=== PATIENT | male | born 1950 | race African-American/Black ===

== ENCOUNTER 2017-09-08 05:26 | Emergency (ER) | payer OTHER ==
[2017-09-08] MEDS ORDERED: Ketorolac INJ* 30 MG/ML 1 ML VIAL IV PUSH ONE (07:23)
[2017-09-08] MEDS ORDERED: Dexamethasone IV* 4 MG/ML 5 ML VIAL (20 MG) IVPB ONE (07:23)
[2017-09-08 07:27] LABS: Hematocrit 42 % (42-52); Mean Corpuscular HGB Conc 34 g/dl (31-36); Mean Corpuscular Hemoglobin 32 pg (27-31); Mean Corpuscular Volume 96 fL (80-94); Mean Platelet Volume 8 um3 (7.4-10.4); Red Blood Count 4.34 10^6/ul (4.0-5.4); Red Cell Distribution Width 16 % (10.5-15); White Blood Count 6.6 10^3/ul (3.5-10.8)
[2017-09-08 07:28] LABS: Add Diff/Slide Review? Slide Review Added; Comments Flag Yes
[2017-09-08] MEDS ORDERED: Orphenadrine Citrate IV* 30 MG/ML 2 ML VIAL IV ONE (07:28)
[2017-09-08 07:33] LABS: ALT 86 U/L (7-52); Albumin 4.6 g/dL (3.2-5.2); Alkaline Phosphatase 108 U/L (34-104); BUN/Creatinine Ratio 12.4 (8-20); Blood Urea Nitrogen 11 mg/dL (6-24); CO2 Carbon Dioxide 21 mmol/L (22-32); Calcium 9.1 mg/dL (8.6-10.3); Chloride 103 mmol/L (101-111); EGFR African American 110.3 (>60); EGFR Non-African American 85.8 (>60); Globulin 3.3 g/dL (2-4); Glucose 91 mg/dL (70-100); Sodium 138 mmol/L (133-145); Total Protein 7.9 g/dL (6.4-8.9)
--- NOTE | 2017-09-08 07:48 | RAD ---
HISTORY: Lower back pain COMPARISONS: None VIEWS: 3 , Frontal, lateral, and coned-down lateral sacral views of the lumbar spine FINDINGS: ALIGNMENT: There is straightening of the normal lumbar lordosis. VERTEBRAL BODIES: The vertebral body heights are normal. The interpedicular distances are normal. There is mild anterolateral marginal osteophyte formation, most pronounced at L3-L4 JOINTS: The facet joints are normal. INTERVERTEBRAL DISCS: There is diffuse loss of intervertebral disc height. SOFT TISSUE: Unremarkable. OTHER: The pelvis is unremarkable. The lung bases are clear. IMPRESSION: STRAIGHTENING OF THE LUMBAR LORDOSIS. MILD DEGENERATIVE DISC DISEASE.
--- NOTE | 2017-09-08 07:48 | RAD ---
HISTORY: Upper back pain COMPARISONS: None relevant VIEWS: 2, Frontal and lateral views of the thoracic spine. FINDINGS: ALIGNMENT: The alignment is normal. VERTEBRAL BODIES: The vertebral body heights are normal. The interpedicular distances are normal. JOINTS: Unremarkable. INTERVERTEBRAL DISCS: There is mild diffuse loss of intervertebral disc height. SOFT TISSUE: Unremarkable OTHER: The visualized lungs are clear. IMPRESSION: MILD DEGENERATIVE CHANGES
[2017-09-08 07:59] LABS: Alcohol 296 mg/dL (<10)
[2017-09-08 08:26] VITALS: BP 152/92
[2017-09-08 08:28] LABS: Anion Gap 14 mmol/L (2-11)
--- NOTE | 2017-09-09 18:55 | ED ---
Suhas Vargas Angela, scribed for Kyle Hickey MD on 09/08/17 at 0724 . Progress - Progress Note Progress Note: This pt was signed out by Dr. Church, pending disposition, awaiting thoracic and lumbar spine XRs. Pt is a 67 y/o male presenting to [facility] c/o back pain x2 days. Pt notes his pain is non-radiating. 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 Pt denies urinary or bowel incontinence, numbness/weakness/tingling in LE. Physical Exam: VITAL SIGNS: Reviewed. GENERAL: Patient is a well-developed and nourished male who is lying comfortable in the stretcher. Patient is not in acute distress. HEAD AND FACE: No signs of trauma. No ecchymosis, hematomas or skull depressions. No sinus tenderness. EYES: PERRLA, EOMI x 2, No injected conjunctiva, no nystagmus. EARS: Hearing grossly intact. Ear canals and tympanic membranes are within normal limits. MOUTH: Oropharynx within normal limits. NECK: Supple, trachea is midline, no adenopathy, no JVD, no carotid bruit, no c- spine tenderness, neck with full ROM. CHEST: Symmetric, no tenderness at palpation LUNGS: Clear to auscultation bilaterally. No wheezing or crackles. CVS: Regular rate and rhythm, S1 and S2 present, no murmurs or gallops appreciated. ABDOMEN: Soft, non-tender. No signs of distention. No rebound no guarding, and no masses palpated. Bowel sounds are normal. EXTREMITIES: FROM in all major joints, no edema, no cyanosis or clubbing. NEURO: Alert and oriented x 3. No acute neurological deficits. Speech is normal and follows commands. SKIN: Dry and warm Pt will be discharged to home, in stable condition, with a diagnosis of lumbar strain, back pain. - Results/Orders Results/Orders: Thoracic Spine XR, as read per radiologist: IMPRESSION: Mild degenerative changes. ED physician has reviewed this radiology report and agrees. Lumbar Spine XR, as read per radiologist: IMPRESSION: Straightening of the lumbar lordosis. Mild degenerative disc disease. ED physician has reviewed this radiology report and agrees. Re-Evaluation - Re-Evaluation First Eval Re-Evaluation Time: 07:11 Comment: Pt is lying comfortable in the stretcher. He is in no acute distress. Course/Dx - Course Course Of Treatment: Pt is a 67 y/o male presenting to [facility] c/o back pain x2 days. Pt notes his pain is non-radiating. 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 Pt denies urinary or bowel incontinence, numbness/weakness/tingling in LE. This pt was signed out by Dr. Church who requested to follow up on thoracic and lumbar spine XRs. If they are negative, he reports the pt can be discharged home with follow up from his PCP. Test results show the pt is intoxicated with serum alcohol of 296. Thoracic spine XR shows mild degenerative changes. Lumbar spine XR shows straightening of the lumbar lordosis. Mild degenerative disc disease. In the ED course, the pt was given Toradol. Decadron, and Norflex and his symptoms improved. At this point, the pt has no complaints, he is ambulating, and he is sober. Pt is alert and oriented x3. Pt will be discharged to home with his friend and is advised to follow up with his PCP. Pt is hemodynamically stable, alert and oriented x3. Pt will be discharged to home, in stable condition, with a diagnosis of lumbar strain, back pain. - Diagnoses Provider Diagnoses: Lumbago The documentation as recorded by the Suhas desai Angela accurately reflects the service I personally performed and the decisions made by , Kyle Hickey MD.
== END 2017-09-08 08:23 | disposition home or self-care (01) ==
LOC: ED 05:26
DX: M54.5 Low back pain (principal)
CPT/HCPCS: 36415; 72070; 72100; 80053; 80320; 85025; 99283; G0480; J1100; J1885; J2360

== ENCOUNTER 2018-08-31 08:30 | Inpatient (IN) | payer MEDICARE ==
--- NOTE | 2018-09-10 19:53 | HP ---
CC: Dr. Palacios, [place]; Dr. Lemuel Thayer * PREOPERATIVE HISTORY AND PHYSICAL: DATE OF ADMISSION/SURGERY: 09/21/18 This patient is scheduled for AA admission by Dr. Hsieh on 09/21/18. DATE OF PREOPERATIVE HISTORY AND PHYSICAL EXAMINATION: 09/10/18. ATTENDING SURGEON: Dr. Karen Hsieh * (dictated by Adrianne Escobar NP). CHIEF COMPLAINT: Left adrenal mass. HISTORY OF PRESENT ILLNESS: The patient is a 68-year-old male recently evaluated by Dr. Hsieh for an enlarging left adrenal mass. The patient notes that the left adrenal mass was first identified on a 2012 MRI that was performed for complaints of left-sided abdominal pain. Per medical records, in 2013, the mass measured 16 x 11 mm and that mass has grown in size on subsequent imaging with the most recent CT of the abdomen and pelvis revealing the mass at 46 mm. He previously had functional evaluation which was negative. His primary care provider, Dr. Palacios, at [place] referred him to Dr. 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 The patient denies symptoms of flushing, abdominal pain or extreme hypertension or weight gain. He has had 9 months of unintentional weight loss of 15 pounds. He is a current everyday smoker. He has not had previous abdominal surgery. Dr. Hsieh has examined the patient and reviewed his studies and discussed the findings with the patient. Dr. Hsieh has recommended laparoscopic left adrenalectomy with either a transabdominal or a retroperitoneal approach, possible open left adrenalectomy. She has described the indications for adrenalectomy, which is the concern for malignancy given its rate of growth, appearance, and size at this point. She discussed the relevant risks, benefits, and alternatives and the patient wishes to proceed with surgery. Today, I reviewed the typical hospitalization and postoperative care and recovery. The patient has had a chance to ask questions and stated that he understands the information and is satisfied with the answers given to his questions. He will sign surgical consent on the day of surgery. PAST MEDICAL HISTORY: Significant for left adrenal mass; hypertension; mild macrocytic anemia; focal nodular hyperplasia of the liver. PAST SURGICAL HISTORY: Repair of rotator cuff, right shoulder. MEDICATIONS: None currently. ALLERGIES: No known drug allergies. FAMILY HISTORY: Father due to unknown causes. Mother due to stroke. No known anesthesia complications, bleeding tendencies, or clotting disorders. SOCIAL HISTORY: He is single and lives alone. Postoperatively, he will be spending time at a friend's house for couple weeks. He is retired from [employer]. Currently, he is smoking half pack of cigarettes per day and consumes one 6-pack per week. He has been counseled on smoking cessation and decreasing alcohol intake. REVIEW OF SYSTEMS: Constitutional: No fevers, chills, or night sweats. He has had a 15-pound unintentional weight loss over the past 9 months. Endocrine : As described in history of present illness; no diabetes or thyroid disease known. Hematologic: No easy bruising or bleeding. He has never received a blood transfusion. Respiratory: No dyspnea on exertion. No chronic cough; exercise capacity, he can walk 2 blocks on level ground or carry two bags of groceries up two flights of stairs. Cardiovascular: No anginal chest pain, palpitations, or dizziness. Gastrointestinal: No abdominal pain. No nausea, vomiting, diarrhea, GI bleeding, or constipation. Genitourinary: No dysuria. Musculoskeletal: No back or joint pain. Integumentary: No chronic rashes or skin changes. Neurologic: No headache or blurred vision. No areas of focal weakness or numbness. General: No history of anesthesia complications; no history of deep vein thrombosis or pulmonary embolism; he has never had a MRSA infection. PHYSICAL EXAMINATION GENERAL SURVEY: The patient is a 68-year-old male, well developed, well nourished, in no acute distress. VITAL SIGNS: Height 69 inches, weight 130 pounds, body mass index 19.2. Blood pressure 134/86, pulse 86 and regular, respiratory rate 16, temperature 99.3 tympanic. HEENT: Benign. NECK: Supple. No cervical lymphadenopathy. LUNGS: Breath sounds bilaterally clear and equal. HEART: Regular rate and rhythm. No murmurs or rubs appreciated. ABDOMEN: Active bowel sounds. Soft, nondistended, and nontender throughout. BACK: No CVA tenderness. GENITALIA: Exam deferred. RECTAL: Exam deferred. EXTREMITIES: No edema. No skin ulcerations. NEUROLOGIC: Alert and oriented x3. Steady gait. SKIN: Warm, dry, intact. 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 PLAN: AA admission to Dr. Hsieh's service on 09/21/18, for laparoscopic left adrenalectomy. MILTON ESCOBAR, PLASTIC BLOCK BOILER RELINER [id number]/[facility] #: [id number] [facility]OSPITALShaina
[2018-09-27] MEDS ORDERED: Ondansetron TAB* 4 MG PO ONE (10:35)
[2018-09-27] MEDS ORDERED: Buffered Lidocaine 0.9% SYRIN* 5 ML/SYR SYRINGE INTRADERM ONE (10:35)
[2018-09-28] MEDS ORDERED: oxyCODONE/Acetamin 5/325 MG* TAB PO PRN (05:51)
[2018-09-28] MEDS ORDERED: Naloxone* 0.4 MG/ML 1 ML VIAL IV PRN (05:51)
[2018-09-28] MEDS ORDERED: PROCHLORPERAZINE INJ 5 MG/ML 2 ML VIAL IV PRN (05:51)
[2018-09-28] MEDS ORDERED: Morphine VIAL* 4 MG/ML VIAL (1 ml vial) IV PRN (05:51)
[2018-09-28] MEDS ORDERED: DiMENhydriNATE IV* 50 MG/ML VIAL IV PUSH PRN (05:51)
[2018-09-28] MEDS ORDERED: Lactated Ringers 1000 ML Bag* 1,000 ML IV SCH ×2 (06:00→15:00)
[2018-09-28] MEDS ORDERED: Levalbuterol 0.63MG/3ML NEB* UNIT OF USE INH ONE ×2 (06:00→09:52)
[2018-09-28] MEDS ORDERED: Dexamethasone IV* 4 MG/ML 1 ML (4 MG) IV SLOW PU ONE (06:00)
[2018-09-28] MEDS ORDERED: Famotidine IV* 10 MG/ML 2 ML (20 mg) IV ONE (06:00)
[2018-09-28] MEDS ORDERED: Dexamethasone IV* 4 MG/ML 1 ML (4 MG) ONE (09:51)
[2018-09-28] MEDS ORDERED: Famotidine IV* 10 MG/ML 2 ML (20 mg) ONE (09:51)
[2018-09-28] MEDS ORDERED: ceFAZolin 2 GM PREMIX in ORs 2 GM/50 ML BAG IVPB ONE (09:52)
[2018-09-28] MEDS ORDERED: Ondansetron ODT TAB* 4 MG ONE (09:52)
[2018-09-28] MEDS ORDERED: NitroPRUSSide* 50 MG in D5W 250 ML BAG* 248 ML IVPB SCH (10:00)
[2018-09-28] MEDS ORDERED: Midazolam* 1 MG/ML 5 ML VIAL (5 MG) ONE ×2 (10:16→14:51)
[2018-09-28] MEDS ORDERED: fentaNYL* 50 MCG/ML 5 ML VIAL (250 MCG VIAL) ONE ×2 (10:16→12:18)
[2018-09-28] MEDS ORDERED: Bupivacaine 0.25% SDV PF* 10 ML VIAL INJ ONE (11:03)
[2018-09-28] MEDS ORDERED: Atracurium* 10 MG/ML 10 ML VIAL ONE (12:14)
[2018-09-28] MEDS ORDERED: Glycopyrrolate IV* 0.2 MG/ML 1 ML VIAL ONE ×2 (14:05→14:27)
[2018-09-28] MEDS ORDERED: Propofol* 10 MG/ML 20 ML BTL ONE (14:05)
[2018-09-28] MEDS ORDERED: hydrALAZINE IV* 20 MG/ML VIAL ONE (14:05)
[2018-09-28] MEDS ORDERED: Neostigmine Methylsulfate* 1 MG/ML 10 ML VIAL (1 mg/ml) ONE (14:05)
[2018-09-28] MEDS ORDERED: Metoprolol Tartrate IV* 1 MG/ML 5 ML VIAL ONE ×3 (14:05→14:54)
[2018-09-28] MEDS ORDERED: Esmolol* 10 MG/ML 10 ML (100 mg) ONE (14:54)
[2018-09-28] MEDS ORDERED: Ketorolac INJ* 30 MG/ML 1 ML VIAL IV PRN (15:00)
[2018-09-28] MEDS ORDERED: Ondansetron INJ* 2 MG/ML VIAL IV PRN (15:00)
[2018-09-28] MEDS ORDERED: Acetaminophen TAB* 325 MG PO PRN (15:00)
[2018-09-28] MEDS ORDERED: HYDROmorphone INJ1* 1 MG/ML SYRINGE IV PRN (15:00)
[2018-09-28] MEDS ORDERED: Albuterol HFA INHALER* 8 gm MDI INH PRN (15:07)
--- NOTE | 2018-09-28 15:33 | OP ---
Operative Report - Detailed - Operation Details Date of Operation: 09/28/18 Surgeon(s): Karen Hsieh Heavy Equipment Service Manager(s): Luigi Altman Anesthesiologist(s): Dr. Limon Anesthesia: GETA Pre-Op Diagnosis: Cushings syndrome Post-Op Diagnosis: Same Planned Operative Procedure(s): laparoscopic left retroperitoneal adrenalectomy Estimated Blood Loss: 10 cc Wound Classification: clean
[2018-09-28] MEDS ORDERED: fentaNYL* 50 MCG/ML 2 ML VIAL (100 MCG VIAL) ONE (15:40)
[2018-09-28] MEDS: fentaNYL* 50 MCG/ML 2 ML VIAL (100 MCG VIAL) IV PRN ×3 (15:43→16:23)
[2018-09-28] MEDS: oxyCODONE/Acetamin 5/325 MG* TAB PO PRN (19:07)
[2018-09-28] MEDS: Hydrocortisone INJ* 100 MG VIAL IV SCH (20:20)
--- NOTE | 2018-09-29 02:55 | OP ---
OPERATIVE REPORT: DATE OF OPERATION: 09/28/18 DATE OF : 54 SERVICE: General Surgery. SURGEON: Karen Hsieh MD HOT METAL MIXER OPERATOR HELPER: Roger Altman MD ANESTHESIOLOGIST: Dr. Evert Limon. ANESTHESIA: General endotracheal anesthesia. 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 OPERATIVE PROCEDURE: Laparoscopic left retroperitoneal adrenalectomy. ESTIMATED BLOOD LOSS: Approximately 10 cc. SPECIMEN: Left adrenal INDICATIONS: Mr. Antelmo Last is a 68-year-old gentleman with history of smoking and hypertension, who was found to have a a left adrenal adenoma on imaging over 5 years ago. It had been followed with serial imaging over the past several years and his primary care physician noticed it had been getting larger to the point where most recent scan showed it was 4.5 cm. Given this increasing growth, he was sent to an crematorium operator who during hormonal evaluation found that the patient had a nonsuppressed dexamethasone suppression test indicating that this was a cortisol-secreting tumor. Given its increasing size and and the findings of Whitfield's syndrome, the patient met indications for adrenalectomy. The patient understood the risks, benefits and alternatives of doing laparoscopic retroperitoneal left adrenalectomy and he wished to proceed. DESCRIPTION OF PROCEDURE: The patient was brought back to the operating room in a stretcher and remained the stretcher for intubation. Venodyne boots were placed on the bilateral lower extremities for DVT prophylaxis. An arterial line was placed by the anesthesiologist. The patient underwent general endotracheal anesthesia. Antibiotics and decadron were given prior to surgery. A Morejon catheter was placed and then he was placed into the modified prone position. All pressure points were padded. Once the positioning was completed , the left back was prepped and draped in normal sterile fashion, and prior to beginning the procedure, a time-out was performed to verify the patient's name, MR number, and the procedure to be performed as well as the laterality which was on the left. An incision was made just below the left posterior costal margin after injecting local anesthesia with 0.25% Marcaine. Metzenbaum scissors was used to access the correct space right underneath the rib cage. Once the space was developed bluntly with finger, two 5 mm trocars were placed, the medial one just lateral to the paraspinous muscle and another one more lateral near the abdomen. A 12 mm trocar was then placed into the middle incision and the retroperitoneum was then inflated to approximately 17 mmHg. Upon inspection of the retroperitoneal cavity, there was no injury that I had made upon entry. The laparoscope was placed into the middle trocar and the Gerota's fascia was entered and these attachments were taken down bluntly. Once the correct space was entered, all the retroperitoneal attachments were taken down to the paraspinous muscles medially and to the peritoneum laterally. Once this was done, the top of the kidney was identified through the perinephric fat. The renal hilum was also noted to be very close to the area that we were working. Anteriorly, the adrenal gland was identified and inferiorly from the kidney. The phrenic vein was identified and traced back to its confluence with the adrenal vein. The adrenal vein was rather large, so 2 clips were placed on it distally and the proximal end was ligated using LigaSure. Once the adrenal vein was ligated, the remaining adrenal attachments were taken with some difficulty as this was a large and bulbous adrenal gland. The adrenal gland capsule was partially opened from manipulation of the tumor and then was removed from the back in an EndoCatch bag. Once it was removed, the remaining retroperitoneal space was examined for hemostasis. There was no evidence of bleeding. The space was irrigated. Desufflation was obtained, all the trocars were removed and the fascia of the 12 mm port site incision was closed using 0 Vicryl suture. All the skin was closed using a running 4-0 Monocryl suture. Sterile dressing was placed. The patient was placed back into the supine position. The general anesthesia was reversed and the patient was then taken to the PACU in stable condition. At the end of the case, all counts were correct and I was present during the entirety of the case. [id number]/[facility] #: [id number] [facility]PITALShaina
[2018-09-29] MEDS: oxyCODONE/Acetamin 5/325 MG* TAB PO PRN ×2 (04:01→09:01)
[2018-09-29] MEDS: Hydrocortisone INJ* 100 MG VIAL IV SCH ×2 (04:01→12:47)
[2018-09-29] MEDS ORDERED: Heparin VIAL(*) 5000 UNITS/ML VIAL (FIVE THOUSAND) SUBCUT SCH (06:00)
[2018-09-29] MEDS ORDERED: Hydrochlorothiazide TAB* 25 MG PO SCH (09:00)
--- NOTE | 2018-09-29 09:47 | PN ---
Progress Note - Progress Note Date of Service: 09/29/18 Note: Surgery Progress Note S: Patient doing well. Minimal pain. Tolerating diet. Passed trial of void. Has not yet ambulated. O: Vital Signs - 24 hr 09/28/18 09/28/18 09/28/18 10:33 10:34 14:55 Temperature 97.2 F Pulse Rate 139 Respiratory 17 Rate Blood Pressure 155/102 133/93 (mmHg) O2 Sat by Pulse 86 Oximetry 09/28/18 09/28/18 09/28/18 15:00 15:05 15:10 Temperature Pulse Rate 101 90 88 Respiratory 10 18 17 Rate Blood Pressure (mmHg) O2 Sat by Pulse 100 100 100 Oximetry 09/28/18 09/28/18 09/28/18 15:15 15:30 15:43 Temperature Pulse Rate 89 88 Respiratory 16 28 12 Rate Blood Pressure (mmHg) O2 Sat by Pulse 100 100 Oximetry 09/28/18 09/28/18 09/28/18 15:45 15:56 16:00 Temperature 97.0 F Pulse Rate 91 98 Respiratory 10 12 9 Rate Blood Pressure (mmHg) O2 Sat by Pulse 100 99 Oximetry 09/28/18 09/28/18 09/28/18 16:07 16:15 16:20 Temperature 97.0 F Pulse Rate 100 98 100 Respiratory 22 14 15 Rate Blood Pressure 149/92 (mmHg) O2 Sat by Pulse 99 100 100 Oximetry 09/28/18 09/28/18 09/28/18 16:23 16:30 17:06 Temperature 98.4 F Pulse Rate 94 97 Respiratory 14 11 20 Rate Blood Pressure 152/90 155/75 (mmHg) O2 Sat by Pulse 99 97 Oximetry 09/28/18 09/28/18 09/28/18 17:59 18:30 19:03 Temperature 98.4 F 98.3 F Pulse Rate 102 95 Respiratory 17 16 18 Rate Blood Pressure 145/75 125/70 (mmHg) O2 Sat by Pulse 99 100 Oximetry 09/28/18 09/28/18 09/28/18 19:07 20:20 20:37 Temperature Pulse Rate Respiratory 16 16 16 Rate Blood Pressure (mmHg) O2 Sat by Pulse Oximetry 09/28/18 09/28/18 09/29/18 21:11 23:15 03:51 Temperature 98.3 F 98.3 F 98.7 F Pulse Rate 81 79 74 Respiratory 18 16 16 Rate Blood Pressure 129/75 148/83 156/83 (mmHg) O2 Sat by Pulse 99 100 100 Oximetry 09/29/18 09/29/18 09/29/18 04:01 06:14 06:29 Temperature Pulse Rate Respiratory 16 16 Rate Blood Pressure (mmHg) O2 Sat by Pulse 100 Oximetry 09/29/18 09:01 Temperature Pulse Rate Respiratory 16 Rate Blood Pressure (mmHg) O2 Sat by Pulse Oximetry Intake & Output 09/28/18 09/29/18 09/29/18 22:59 06:59 14:59 Intake Total 2953 1150 120 Output Total 1135 550 Balance 1818 600 120 Intake: IV Fluids 2753 700 LR 2753 700 Oral 200 450 120 Output: Urine 0 550 Morejon 1125 Estimated Blood Loss 10 Physical exam: back- minimal tenderness, incisions c/d/i, small ecchymosis around middle incision A/P: 68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 - DC home on steroid taper. Patient will follow up with myself and Dr. Thayer.
--- NOTE | 2018-09-29 12:01 | DS ---
DISCHARGE SUMMARY: DATE OF ADMISSION: 09/28/18 DATE OF DISCHARGE: 09/29/18 ADMISSION DIAGNOSIS: Monona syndrome. SURGEON: Karen Hsieh MD. OPERATION: Laparoscopic retroperitoneal left adrenalectomy. HOSPITAL COURSE: Mr. Antelmo Last is a 68-year-old gentleman with history of hypertension and smoking, who had a known left adrenal adenoma for several years , and on serial imaging was noted to be increasing in size to 4.5 cm. He was seen by Dr. Thayer (Endocrinology), and during a functional hormone workup was found to have hypocortisolism demonstrated by an elevated dexamethasone suppression test. Given the increase in size of the adrenal gland over the past 4 to 5 years as well as evidence of Katie syndrome, he met indications for left- sided adrenalectomy. He understood the risks, benefits, and alternatives of doing the procedure and he wished to proceed. The surgery was uneventful and the patient was admitted for an overnight observation. His Morejon catheter was removed in the evening and he passed trial of void. On the day of discharge, he was ambulating, tolerating a regular diet and his pain was well controlled. He did not have nausea or vomiting. His physical examination demonstrated no swelling in his left his left back. His incisions were clean, dry, intact with a little bit of ecchymosis around the middle incision, where the 12-mm port was. I reviewed his discharge instructions with him as well his medications. He will be discharged home with percocet PRN. I went over his steroid taper in detail with him, which will be prednisone 10 mg p.o. daily x7 days, then 9 mg p.o. daily x7 days, then 8 mg p.o. daily x7 days, then 7 mg p.o. daily x7 days, then 6mg po daily x 7 days and 5 mg p.o. daily until he follows up with Dr. Thayer. I reviewed these instructions with his nurse as well as the outpatient pharmacist, who will be reviewing his medications and dispensing his prednisone prior to his discharge. The patient will be returning home and staying with a friend for the next several days. He will follow up with myself in 2 weeks for postoperative check, and he follow up with Dr. Thayer from Endocrinology, as well as his own primary care physician. [id number]/[facility] #: [id number] [facility]ENTERShaina
[2018-09-29 12:51] VITALS: BP 154/85
== END 2018-09-29 14:15 | disposition home or self-care (01) | DRG 982 ==
LOC: AA 09-28 09:08 → SSU 09-28 16:54
PROVIDERS: ADMIT Surgery; ATTEND Surgery
PROC: 0GT24ZZ Resection of Left Adrenal Gland, Percutaneous Endoscopic Approach (ICD-10-PCS; principal; 2018-09-28 11:15)
DX: D53.9 Nutritional anemia, unspecified (principal); E24.9 Cushing's syndrome, unspecified; F17.211 Nicotine dependence, cigarettes, in remission; I10 Essential (primary) hypertension; K76.89 Other specified diseases of liver; Z82.3 Family history of stroke
CPT/HCPCS: A9270-GY; J0360; J0690; J1100; J1644; J1720; J2250; J2704; J2710; J3010; J3490

== ENCOUNTER 2020-11-30 16:25 | Inpatient (IN) ==
[2020-11-30] MEDS ORDERED: Piperacillin/Tazobac ADVAN 3.375 GM in NS 0.9% 100 ml BAG 100 ML IVPB ONE (16:49)
[2020-11-30] MEDS: NS 0.9% 1000 ml BAG 2,000 ML IV ONE ×2 (17:39→18:55)
[2020-11-30 17:54] LABS: Hematocrit 34 % (42-52); Hemoglobin 11.3 g/dL (14.0-18.0); Mean Corpuscular HGB Conc 34 g/dL (31-36); Mean Corpuscular Hemoglobin 30 pg (27-31); Mean Corpuscular Volume 90 fL (80-94); Red Blood Count 3.74 10^6 /uL (4.18-5.48); Red Cell Distribution Width 16 % (10-15)
[2020-11-30 17:57] LABS: Activated Partial Thrombo Time 26.1 seconds (26.0-38.0); INR 0.95 (0.82-1.09)
[2020-11-30 18:05] LABS: Troponin I 0.05 ng/mL (<0.03)
[2020-11-30 18:16] LABS: ALT 9 U/L (7-52); AST 15 U/L (13-39); Albumin 2.8 g/dL (3.2-5.2); Albumin/Globulin Ratio 1.1 (1-3); Alkaline Phosphatase 102 U/L (34-104); BUN/Creatinine Ratio 19.1 (8-20); Blood Urea Nitrogen 13 mg/dL (6-24); C Reactive Protein 191.73 mg/L (<8.01); CO2 Carbon Dioxide 38 mmol/L (22-32); Calcium 7.4 mg/dL (8.6-10.3); Chloride 93 mmol/L (101-111); EGFR African American 140.3 (>60); Globulin 2.5 g/dL (2-4); Glucose 182 mg/dL (70-100); Sodium 141 mmol/L (135-145); Total Protein 5.3 g/dL (6.4-8.9)
[2020-11-30 18:18] LABS: Anion Gap 10 mmol/L (2-11); LDH 528 U/L (140-271); Potassium 2.4 mmol/L (3.5-5.0)
[2020-11-30] MEDS ORDERED: KCL 20 MEQ/100 ML IVPREMIX 20 MEQ/100 ML BAG IV ONE (18:20)
[2020-11-30 18:33] LABS: Ferritin 1278.7 ng/mL (24-336)
[2020-11-30 18:40] LABS: ABS Lymphocytes 0.3 10^3/ul (1.0-4.8); ABS Monocytes 0.4 10^3/ul (0-0.8); ABS Neutrophils 10.3 10^3/ul (1.5-7.7); Lymphocyte % 2.4 %; Mean Platelet Volume 8.6 fL (7.4-10.4); Nucleated Red Blood Cells % 0.1; Platelet Count 82 10^3/uL (150-450)
[2020-11-30 19:43] LABS: Influenza A Molecular Negative (Negative); Influenza B Molecular Negative (Negative)
[2020-11-30 20:19] LABS: Magnesium 1.1 mg/dL (1.9-2.7)
[2020-11-30] MEDS ORDERED: Magnesium Sulf 4 GM/100 ML IV 4,000 MG/100 ML BAG IVPB ONE (20:45)
[2020-11-30] MEDS ORDERED: Albuterol HFA INHALER 8 gm MDI INH PRN (20:51)
[2020-11-30] MEDS ORDERED: NS 0.9% 1000 ml BAG 400 ML IV SCH (21:00)
[2020-11-30] MEDS: Morphine ER 15 mg TAB ** extended release PO SCH (21:53)
[2020-11-30] MEDS ORDERED: Dextrose 50% Syringe 50 ml 25 GM/50 ML SYRINGE IV PUSH PRN (21:59)
[2020-11-30] MEDS ORDERED: Zosyn per Pharmacy NOTE FOLLOW UP SCH (22:00)
[2020-11-30] MEDS: Hydrocortisone INJ 100 MG/2ML 2 ML VIAL IV SCH (22:04)
[2020-11-30] MEDS: KCL 20 MEQ/100 ML IVPREMIX 20 MEQ/100 ML BAG IV SCH (22:05)
[2020-11-30] MEDS ORDERED: ZOSYN 3.375 GM Q8H per EXTENDED INFUSION IV SCH (22:30)
[2020-11-30] MEDS ORDERED: Iodixanol (CONTRAST) 320 MG/ML 100 ML SDV IV ONE (22:39)
[2020-11-30 22:55] LABS: Urine Appearance Cloudy; Urine Bilirubin Negative (Negative); Urine Blood 3+ (Negative); Urine Color Yellow; Urine Glucose 1+(50 mg/dL) (Negative); Urine Ketones Negative (Negative); Urine Nitrite Negative (Negative); Urine Protein 1+(30 mg/dL) (Negative); Urine Specific Gravity 1.015 (1.010-1.030); Urine Urobilinogen Negative (Negative)
[2020-11-30 22:58] LABS: Urine Bacteria 1+ (Absent); Urine Red Blood Cell 3+(>10/hpf) (Absent); Urine Squamous Epithelial Cell Present (Absent); Urine White Blood Cell Trace(0-5/hpf) (Absent)
[2020-11-30 23:00] LABS: Troponin I 0.06 ng/mL (<0.03)
[2020-11-30] MEDS ORDERED: Potassium Chlor 10 meq TAB PO ONE (23:23)
[2020-11-30] MEDS ORDERED: Iohexol 300 (CONTRAST) 10 ML SDV IV ONE (23:38)
[2020-12-01] MEDS: NS 0.9% 1000 ml BAG 1,000 ML IV SCH ×2 (00:38→09:43)
[2020-12-01] MEDS: KCL 20 MEQ/100 ML IVPREMIX 20 MEQ/100 ML BAG IV SCH (01:14)
[2020-12-01 01:16] LABS: Troponin I 0.06 ng/mL (<0.03)
[2020-12-01] MEDS: Hydrocortisone INJ 100 MG/2ML 2 ML VIAL IV SCH (04:14)
[2020-12-01 04:15] LABS: ABS Basophils 0.1 10^3/ul (0-0.2); ABS Lymphocytes 0.3 10^3/ul (1.0-4.8); ABS Monocytes 0.4 10^3/ul (0-0.8); ABS Neutrophils 9.3 10^3/ul (1.5-7.7); Hematocrit 30 % (42-52); Hemoglobin 10.1 g/dL (14.0-18.0); Lymphocyte % 3.2 %; Mean Corpuscular HGB Conc 33 g/dL (31-36); Mean Corpuscular Hemoglobin 30 pg (27-31); Mean Corpuscular Volume 91 fL (80-94); Mean Platelet Volume 8.9 fL (7.4-10.4); Nucleated Red Blood Cells % 0.1; Platelet Count 67 10^3/uL (150-450); Red Blood Count 3.35 10^6 /uL (4.18-5.48); Red Cell Distribution Width 16 % (10-15)
[2020-12-01 04:22] LABS: Anion Gap 8 mmol/L (2-11); BUN/Creatinine Ratio 17.2 (8-20); Blood Urea Nitrogen 11 mg/dL (6-24); CO2 Carbon Dioxide 36 mmol/L (22-32); Calcium 6.7 mg/dL (8.6-10.3); Chloride 97 mmol/L (101-111); EGFR African American 150.5 (>60); EGFR Non-African American 124.4 (>60); Glucose 183 mg/dL (70-100); Magnesium 1.9 mg/dL (1.9-2.7); Sodium 141 mmol/L (135-145)
[2020-12-01 04:28] LABS: Troponin I 0.06 ng/mL (<0.03)
[2020-12-01] MEDS ORDERED: [UNRECOGNIZED DRUG - OTHER] PO SCH (09:00)
[2020-12-01] MEDS ORDERED: Insulin GLARGINE 100 un/ml 10 ml VIAL SUBCUT SCH (09:00)
[2020-12-01] MEDS: Morphine ER 15 mg TAB ** extended release PO SCH (09:41)
[2020-12-01] MEDS: ZOSYN 3.375 GM Q8H per EXTENDED INFUSION IV SCH ×2 (09:41→17:00)
[2020-12-01] MEDS: [UNRECOGNIZED DRUG - OTHER] PO SCH ×2 (09:42→20:37)
[2020-12-01] MEDS ORDERED: HYDROmorphone 1 MG/1 ML SYRINGE IV SLOW PU PRN (10:22)
[2020-12-01] MEDS ORDERED: Potassium Chlor 20 meq TAB.ER PO ONE (10:25)
[2020-12-01] MEDS ORDERED: Vancomycin 1,000 MG in NS 0.9% 250 ml 250 ML IVPB ONE (11:00)
[2020-12-01] MEDS ORDERED: Clindamycin 900 MG/D5W BAG 900 MG/50 ML BAG IVPB ONE (11:00)
[2020-12-01] MEDS: CMC:Calcitonin NASAL(NF) 200 UNITS/SPRAY NASAL.SPR ALT NARE SCH (12:42)
[2020-12-01] MEDS: Heparin 5000 UNITS/ML 1 mL VIAL SUBCUT SCH ×2 (12:55→20:51)
[2020-12-01] MEDS ORDERED: Morphine ER 15 mg TAB ** extended release PO ONE (13:00)
[2020-12-01] MEDS ORDERED: Gadoteridol (CONTRAST) 279.3 MG/ML 10 ML IV ONE (19:26)
[2020-12-01] MEDS: Morphine ER 30 mg TAB ** extended release PO SCH (20:51)
[2020-12-02] MEDS: ZOSYN 3.375 GM Q8H per EXTENDED INFUSION IV SCH (00:47)
[2020-12-02] MEDS ORDERED: Labetalol IV 5 MG/ML 20 ml VIAL IV PUSH ONE (03:03)
[2020-12-02] MEDS ORDERED: Labetalol IV 5 MG/ML 20 ml VIAL ONE (03:11)
[2020-12-02] MEDS: Heparin 5000 UNITS/ML 1 mL VIAL SUBCUT SCH ×3 (05:43→21:09)
[2020-12-02 07:18] LABS: ABS Lymphocytes 0.4 10^3/ul (1.0-4.8); ABS Monocytes 0.6 10^3/ul (0-0.8); ABS Neutrophils 8.1 10^3/ul (1.5-7.7); Hematocrit 30 % (42-52); Hemoglobin 10.1 g/dL (14.0-18.0); Lymphocyte % 4.6 %; Mean Corpuscular HGB Conc 34 g/dL (31-36); Mean Corpuscular Hemoglobin 31 pg (27-31); Mean Corpuscular Volume 92 fL (80-94); Mean Platelet Volume 9.8 fL (7.4-10.4); Platelet Count 55 10^3/uL (150-450); Red Blood Count 3.25 10^6 /uL (4.18-5.48); Red Cell Distribution Width 16 % (10-15); White Blood Count 9.2 10^3/uL (3.5-10.8)
[2020-12-02 07:42] LABS: BUN/Creatinine Ratio 18.3 (8-20); Calcium 7.2 mg/dL (8.6-10.3); EGFR African American 133.5 (>60); EGFR Non-African American 110.3 (>60); Potassium 2.8 mmol/L (3.5-5.0)
[2020-12-02] MEDS: CMC:Calcitonin NASAL(NF) 200 UNITS/SPRAY NASAL.SPR ALT NARE SCH (09:58)
[2020-12-02] MEDS: [UNRECOGNIZED DRUG - OTHER] PO SCH (10:42)
[2020-12-02 11:03] LABS: Magnesium 1.3 mg/dL (1.9-2.7)
[2020-12-02] MEDS: Morphine ER 30 mg TAB ** extended release PO SCH ×2 (11:05→21:09)
[2020-12-02] MEDS: KCL 20 MEQ/100 ML IVPREMIX 20 MEQ/100 ML BAG IV SCH ×3 (11:15→14:29)
[2020-12-02] MEDS ORDERED: Magnesium Sulf 4 GM/100 ML IV 4,000 MG/100 ML BAG IVPB ONE (14:10)
[2020-12-03] MEDS: Labetalol IV 5 MG/ML 20 ml VIAL IV PUSH PRN ×2 (00:05→21:12)
[2020-12-03] MEDS ORDERED: Labetalol IV 5 MG/ML 20 ml VIAL IV PUSH ONE (00:46)
[2020-12-03] MEDS: Heparin 5000 UNITS/ML 1 mL VIAL SUBCUT SCH ×3 (05:48→21:20)
[2020-12-03 06:49] LABS: ABS Lymphocytes 0.6 10^3/ul (1.0-4.8); ABS Monocytes 0.6 10^3/ul (0-0.8); ABS Neutrophils 7.3 10^3/ul (1.5-7.7); BUN/Creatinine Ratio 18.3 (8-20); Calcium 7.7 mg/dL (8.6-10.3); EGFR African American 162.1 (>60); Eosinophil % 0.1 %; Hematocrit 29 % (42-52); Hemoglobin 9.6 g/dL (14.0-18.0); Lymphocyte % 6.7 %; Magnesium 1.7 mg/dL (1.9-2.7); Mean Corpuscular HGB Conc 33 g/dL (31-36); Mean Corpuscular Hemoglobin 30 pg (27-31); Mean Corpuscular Volume 91 fL (80-94); Nucleated Red Blood Cells % 0.1; Platelet Count 55 10^3/uL (150-450); Red Blood Count 3.21 10^6 /uL (4.18-5.48); Red Cell Distribution Width 16 % (10-15); White Blood Count 8.5 10^3/uL (3.5-10.8)
[2020-12-03 06:54] LABS: Potassium 2.7 mmol/L (3.5-5.0)
[2020-12-03] MEDS ORDERED: Magnesium Sulfate 2 gm BAG 2 GM/50 ML BAG IVPB ONE (07:45)
[2020-12-03] MEDS: CMC:Calcitonin NASAL(NF) 200 UNITS/SPRAY NASAL.SPR ALT NARE SCH (08:46)
[2020-12-03] MEDS: Morphine ER 30 mg TAB ** extended release PO SCH ×2 (08:47→21:20)
[2020-12-03] MEDS: KCL 20 MEQ/100 ML IVPREMIX 20 MEQ/100 ML BAG IV SCH ×3 (08:47→13:52)
[2020-12-03] MEDS ORDERED: Lactated Ringers 1000 ml BAG 1,000 ML IV ONE (17:31)
[2020-12-03] MEDS: Potassium Chloride LIQUID 20 MEQ/15 ML LIQUID PO SCH ×2 (21:20→23:26)
[2020-12-04 05:34] LABS: ABS Lymphocytes 0.7 10^3/ul (1.0-4.8); ABS Monocytes 0.5 10^3/ul (0-0.8); ABS Neutrophils 5.7 10^3/ul (1.5-7.7); Hematocrit 26 % (42-52); Hemoglobin 8.6 g/dL (14.0-18.0); Lymphocyte % 9.9 %; Mean Corpuscular HGB Conc 33 g/dL (31-36); Mean Corpuscular Hemoglobin 30 pg (27-31); Mean Corpuscular Volume 91 fL (80-94); Mean Platelet Volume 9.4 fL (7.4-10.4); Platelet Count 56 10^3/uL (150-450); Red Blood Count 2.89 10^6 /uL (4.18-5.48); Red Cell Distribution Width 16 % (10-15); White Blood Count 6.9 10^3/uL (3.5-10.8)
[2020-12-04 05:40] LABS: BUN/Creatinine Ratio 18.3 (8-20); Blood Urea Nitrogen 11 mg/dL (6-24); CO2 Carbon Dioxide 34 mmol/L (22-32); Calcium 7.9 mg/dL (8.6-10.3); Chloride 100 mmol/L (101-111); EGFR African American 162.1 (>60); Glucose 129 mg/dL (70-100); Magnesium 1.4 mg/dL (1.9-2.7); Sodium 144 mmol/L (135-145)
[2020-12-04 05:56] LABS: Anion Gap 10 mmol/L (2-11); Potassium 2.5 mmol/L (3.5-5.0)
[2020-12-04] MEDS: Heparin 5000 UNITS/ML 1 mL VIAL SUBCUT SCH ×3 (06:29→22:24)
[2020-12-04 06:32] LABS: Polychromasia 1+
[2020-12-04] MEDS: KCL 20 MEQ/100 ML IVPREMIX 20 MEQ/100 ML BAG IV SCH ×2 (07:11→09:04)
[2020-12-04] MEDS ORDERED: Magnesium Sulfate 2 gm BAG 2 GM/50 ML BAG IVPB ONE (08:08)
[2020-12-04] MEDS ORDERED: Magnesium Sulf 4 GM/100 ML IV 4,000 MG/100 ML BAG IVPB ONE (08:13)
[2020-12-04] MEDS: Morphine ER 30 mg TAB ** extended release PO SCH ×2 (08:45→21:35)
[2020-12-04] MEDS: Potassium Chloride LIQUID 20 MEQ/15 ML LIQUID PO SCH (08:45)
[2020-12-04] MEDS: CMC:Calcitonin NASAL(NF) 200 UNITS/SPRAY NASAL.SPR ALT NARE SCH (08:45)
[2020-12-04] MEDS: Labetalol IV 5 MG/ML 20 ml VIAL IV PUSH PRN ×2 (11:25→17:38)
[2020-12-04 14:55] LABS: INR 1.15 (0.82-1.09)
[2020-12-04] MEDS ORDERED: fentaNYL 100 mcg/2 ml 50 MCG/ML VIAL ONE (15:07)
[2020-12-04] MEDS ORDERED: Isosorbide Mononit ER 30mg TAB PO ONE (17:21)
[2020-12-04 18:12] LABS: % Iron Saturation 40 % (15-55); Iron 82 ug/dL (50-212); Total Iron Binding Capacity 206 mcg/dL (250-450); Transferrin 147 mg/dL (203-362); Unsaturated Iron Binding < 191 ug/dL
[2020-12-04 18:32] LABS: Ferritin 728.6 ng/mL (24-336)
[2020-12-04] MEDS ORDERED: Potassium Chloride LIQUID 20 MEQ/15 ML LIQUID PO SCH (21:00)
[2020-12-04] MEDS: KETOCONAZOLE 200 MG PO SCH (21:33)
[2020-12-05] MEDS: Heparin 5000 UNITS/ML 1 mL VIAL SUBCUT SCH ×3 (05:03→21:55)
[2020-12-05 06:46] LABS: BUN/Creatinine Ratio 18.3 (8-20); EGFR African American 133.5 (>60); EGFR Non-African American 110.3 (>60); Magnesium 1.4 mg/dL (1.9-2.7)
[2020-12-05 06:47] LABS: ABS Lymphocytes 0.5 10^3/ul (1.0-4.8); ABS Monocytes 0.3 10^3/ul (0-0.8); ABS Neutrophils 4.9 10^3/ul (1.5-7.7); Hematocrit 27 % (42-52); Hemoglobin 8.7 g/dL (14.0-18.0); Lymphocyte % 9.5 %; Mean Corpuscular HGB Conc 33 g/dL (31-36); Mean Corpuscular Hemoglobin 30 pg (27-31); Mean Corpuscular Volume 91 fL (80-94); Mean Platelet Volume 9.7 fL (7.4-10.4); Platelet Count 67 10^3/uL (150-450); Red Blood Count 2.91 10^6 /uL (4.18-5.48); Red Cell Distribution Width 16 % (10-15); White Blood Count 5.8 10^3/uL (3.5-10.8)
[2020-12-05 06:57] LABS: Potassium 2.3 mmol/L (3.5-5.0)
[2020-12-05] MEDS ORDERED: Magnesium Sulf 4 GM/100 ML IV 4,000 MG/100 ML BAG IVPB ONE (08:36)
[2020-12-05] MEDS: Morphine ER 30 mg TAB ** extended release PO SCH ×3 (08:47→19:32)
[2020-12-05] MEDS: Potassium Chloride LIQUID 20 MEQ/15 ML LIQUID PO SCH ×3 (08:49→19:41)
[2020-12-05] MEDS: KCL 20 MEQ/100 ML IVPREMIX 20 MEQ/100 ML BAG IV SCH ×3 (10:33→15:06)
[2020-12-05] MEDS: KETOCONAZOLE 200 MG PO SCH ×2 (10:38→19:34)
[2020-12-05] MEDS: Isosorbide Mononit ER 30mg TAB PO SCH (10:38)
[2020-12-05] MEDS: CMC:Calcitonin NASAL(NF) 200 UNITS/SPRAY NASAL.SPR ALT NARE SCH (11:51)
[2020-12-06] MEDS: Heparin 5000 UNITS/ML 1 mL VIAL SUBCUT SCH ×3 (07:11→21:21)
[2020-12-06] MEDS: Morphine ER 30 mg TAB ** extended release PO SCH ×2 (08:15→21:22)
[2020-12-06] MEDS: KETOCONAZOLE 200 MG PO SCH ×2 (08:17→21:52)
[2020-12-06] MEDS: Potassium Chloride LIQUID 20 MEQ/15 ML LIQUID PO SCH ×2 (08:18→21:23)
[2020-12-06] MEDS: CMC:Calcitonin NASAL(NF) 200 UNITS/SPRAY NASAL.SPR ALT NARE SCH (08:22)
[2020-12-06 09:03] LABS: Hematocrit 23 % (42-52); Hemoglobin 7.7 g/dL (14.0-18.0); Mean Corpuscular HGB Conc 33 g/dL (31-36); Mean Corpuscular Hemoglobin 30 pg (27-31); Mean Corpuscular Volume 90 fL (80-94); Mean Platelet Volume 9.3 fL (7.4-10.4); Platelet Count 80 10^3/uL (150-450); Red Blood Count 2.59 10^6 /uL (4.18-5.48); Red Cell Distribution Width 16 % (10-15); White Blood Count 7.8 10^3/uL (3.5-10.8)
[2020-12-06 09:05] LABS: BUN/Creatinine Ratio 16.5 (8-20); EGFR African American 100.3 (>60); EGFR Non-African American 82.9 (>60); Potassium 3.5 mmol/L (3.5-5.0)
[2020-12-06 11:06] LABS: Magnesium 1.6 mg/dL (1.9-2.7)
[2020-12-06] MEDS: Isosorbide Mononit ER 30mg TAB PO SCH (11:47)
[2020-12-06] MEDS ORDERED: D5W 1/2 NS 1000 ml BAG 1,000 ML IV SCH (18:00)
[2020-12-07] MEDS: Heparin 5000 UNITS/ML 1 mL VIAL SUBCUT SCH ×3 (05:16→20:45)
[2020-12-07 09:12] LABS: ABS Lymphocytes 0.6 10^3/ul (1.0-4.8); ABS Monocytes 0.3 10^3/ul (0-0.8); ABS Neutrophils 6.5 10^3/ul (1.5-7.7); Hematocrit 23 % (42-52); Hemoglobin 7.5 g/dL (14.0-18.0); Lymphocyte % 7.5 %; Mean Corpuscular HGB Conc 33 g/dL (31-36); Mean Corpuscular Hemoglobin 30 pg (27-31); Mean Corpuscular Volume 90 fL (80-94); Mean Platelet Volume 8.4 fL (7.4-10.4); Platelet Count 104 10^3/uL (150-450); Red Blood Count 2.54 10^6 /uL (4.18-5.48); Red Cell Distribution Width 16 % (10-15); White Blood Count 7.4 10^3/uL (3.5-10.8)
[2020-12-07 09:32] LABS: BUN/Creatinine Ratio 15.9 (8-20); EGFR African American 113.1 (>60); EGFR Non-African American 93.4 (>60); Magnesium 1.3 mg/dL (1.9-2.7); Potassium 3.6 mmol/L (3.5-5.0)
[2020-12-07] MEDS ORDERED: Magnesium Sulfate IV 3 GM in NS 0.9% 100 ml BAG 100 ML IVPB ONE (09:34)
[2020-12-07] MEDS: Morphine ER 30 mg TAB ** extended release PO SCH ×2 (10:42→20:43)
[2020-12-07] MEDS: Potassium Chloride LIQUID 20 MEQ/15 ML LIQUID PO SCH ×2 (10:50→20:42)
[2020-12-07] MEDS: CMC:Calcitonin NASAL(NF) 200 UNITS/SPRAY NASAL.SPR ALT NARE SCH (10:53)
[2020-12-07] MEDS: [UNRECOGNIZED DRUG - OTHER] PO SCH ×2 (10:56→10:58)
[2020-12-07] MEDS: KETOCONAZOLE 200 MG PO SCH ×2 (10:57→20:43)
[2020-12-07] MEDS: Isosorbide Mononit ER 30mg TAB PO SCH (11:04)
[2020-12-07 11:57] LABS: Plasma Free Metanephrine <0.20 nmol/L (<0.50)
[2020-12-07] MEDS: [UNRECOGNIZED DRUG - OTHER] PO SCH (20:41)
[2020-12-07 23:21] LABS: Urine Appearance Cloudy; Urine Bilirubin Negative (Negative); Urine Blood 2+ (Negative); Urine Color Amber; Urine Glucose Negative (Negative); Urine Ketones Trace (Negative); Urine Nitrite Negative (Negative); Urine Protein Negative (Negative); Urine Specific Gravity 1.026 (1.010-1.030); Urine Urobilinogen Negative (Negative)
[2020-12-07 23:24] LABS: Urine Bacteria Absent (Absent); Urine Red Blood Cell 3+(>10/hpf) (Absent); Urine White Blood Cell Trace(0-5/hpf) (Absent)
[2020-12-08] MEDS: Heparin 5000 UNITS/ML 1 mL VIAL SUBCUT SCH ×3 (05:36→20:14)
[2020-12-08 05:47] LABS: BUN/Creatinine Ratio 14.1 (8-20); EGFR African American 133.5 (>60); EGFR Non-African American 110.3 (>60); Magnesium 1.8 mg/dL (1.9-2.7); Potassium 3.9 mmol/L (3.5-5.0)
[2020-12-08] MEDS ORDERED: Magnesium Sulfate IV 3 GM in NS 0.9% 100 ml BAG 100 ML IVPB ONE (08:35)
[2020-12-08] MEDS: Morphine ER 30 mg TAB ** extended release PO SCH (09:03)
[2020-12-08] MEDS: CMC:Calcitonin NASAL(NF) 200 UNITS/SPRAY NASAL.SPR ALT NARE SCH (09:06)
[2020-12-08] MEDS: KETOCONAZOLE 200 MG PO SCH ×2 (09:08→20:16)
[2020-12-08] MEDS: Potassium Chloride LIQUID 20 MEQ/15 ML LIQUID PO SCH (09:10)
[2020-12-08] MEDS: [UNRECOGNIZED DRUG - OTHER] PO SCH ×3 (09:10→20:13)
[2020-12-08] MEDS: NS 0.9% 1000 ml BAG 1,000 ML IV SCH ×2 (10:00→20:13)
[2020-12-08] MEDS: Isosorbide Mononit ER 30mg TAB PO SCH (11:48)
[2020-12-08] MEDS: [UNRECOGNIZED DRUG - OTHER] PO SCH (14:56)
[2020-12-08] MEDS: Morphine ER 15 mg TAB ** extended release PO SCH (20:11)
[2020-12-08] MEDS: Potassium Chlor 20 meq TAB.ER PO SCH (20:13)
[2020-12-09] MEDS: Heparin 5000 UNITS/ML 1 mL VIAL SUBCUT SCH ×3 (05:49→22:37)
[2020-12-09] MEDS: KETOCONAZOLE 200 MG PO SCH ×2 (08:47→21:05)
[2020-12-09] MEDS: Morphine ER 15 mg TAB ** extended release PO SCH ×2 (08:49→21:03)
[2020-12-09] MEDS: Potassium Chlor 20 meq TAB.ER PO SCH ×4 (08:53→22:37)
[2020-12-09] MEDS: NS 0.9% 1000 ml BAG 1,000 ML IV SCH ×2 (08:59→23:33)
[2020-12-09] MEDS: Isosorbide Mononit ER 30mg TAB PO SCH (12:03)
[2020-12-10] MEDS: Labetalol IV 5 MG/ML 20 ml VIAL IV PUSH PRN (03:50)
[2020-12-10] MEDS: Heparin 5000 UNITS/ML 1 mL VIAL SUBCUT SCH ×3 (06:17→21:28)
[2020-12-10] MEDS: Potassium Chlor 20 meq TAB.ER PO SCH ×3 (10:16→21:28)
[2020-12-10] MEDS: Morphine ER 15 mg TAB ** extended release PO SCH ×2 (10:31→21:27)
[2020-12-10] MEDS: KETOCONAZOLE 200 MG PO SCH ×2 (10:55→21:29)
[2020-12-10] MEDS: Isosorbide Mononit ER 30mg TAB PO SCH (12:00)
[2020-12-10] MEDS ORDERED: Morphine ORAL CONCENTRATE 5 MG/0.25 ML ORAL.SYRIN PO PRN ×2 (15:13→15:15)
[2020-12-11] MEDS: Heparin 5000 UNITS/ML 1 mL VIAL SUBCUT SCH (05:07)
[2020-12-11] MEDS: KETOCONAZOLE 200 MG PO SCH ×2 (09:43→20:19)
[2020-12-11] MEDS: Potassium Chlor 20 meq TAB.ER PO SCH ×3 (09:44→20:19)
[2020-12-11] MEDS: Morphine ER 15 mg TAB ** extended release PO SCH (09:44)
[2020-12-11] MEDS: Isosorbide Mononit ER 30mg TAB PO SCH (13:39)
[2020-12-11] MEDS ORDERED: Morphine ORAL CONCENTRATE 5 MG/0.25 ML ORAL.SYRIN PO PRN ×2 (18:28)
[2020-12-11] MEDS ORDERED: Lorazepam PYXIS KEY PRN (20:14)
[2020-12-11] MEDS: LORazepam 2 mg VIAL 1 ml IM PRN (20:25)
[2020-12-12] MEDS ORDERED: Morphine ORAL CONCENTRATE 5 MG/0.25 ML ORAL.SYRIN PO PRN ×2 (10:33→15:40)
[2020-12-12] MEDS: KETOCONAZOLE 200 MG PO SCH (11:10)
[2020-12-12] MEDS: Potassium Chlor 20 meq TAB.ER PO SCH ×2 (11:11→14:30)
[2020-12-12] MEDS ORDERED: LORazepam 2 mg VIAL 1 ml IM PRN (11:28)
[2020-12-12] MEDS: LORazepam 2 mg VIAL 1 ml IM PRN (12:20)
[2020-12-12] MEDS: Morphine ORAL CONCENTRATE 5 MG/0.25 ML ORAL.SYRIN PO PRN ×4 (12:21→20:18)
[2020-12-12] MEDS: Isosorbide Mononit ER 30mg TAB PO SCH (13:10)
[2020-12-14] MEDS ORDERED: Morphine 2 MG/ML SYRINGE IV PRN (14:06)
[2020-12-14] MEDS ORDERED: Lorazepam PYXIS KEY PRN (14:07)
[2020-12-14] MEDS ORDERED: LORazepam 2 mg VIAL 1 ml IV PUSH PRN (14:07)
[2020-12-14] MEDS: Morphine 2 MG/ML SYRINGE IV SCH ×2 (14:52→23:28)
[2020-12-14] MEDS: Loperamide LIQ 2 MG/15 ML UDC PO PRN ×2 (20:56→21:00)
[2020-12-14] MEDS ORDERED: Scopolamine PATCH Remove NOTE PATCH OFF SCH (22:30)
[2020-12-15] MEDS: Morphine 2 MG/ML SYRINGE IV SCH ×3 (07:55→23:23)
[2020-12-16] MEDS: Morphine 2 MG/ML SYRINGE IV SCH ×2 (06:54→13:53)
[2020-12-16] MEDS: Morphine 2 MG/ML SYRINGE IV PRN ×3 (10:24→22:12)
[2020-12-17] MEDS: Morphine 2 MG/ML SYRINGE IV SCH ×4 (00:01→22:43)
[2020-12-17] MEDS ORDERED: LORazepam 2 mg VIAL 1 ml IM ONE (04:30)
[2020-12-17] MEDS ORDERED: LORazepam 2 mg VIAL 1 ml ONE (04:37)
[2020-12-17] MEDS ORDERED: Senna TAB 8.6 mg TAB PO PRN (11:42)
[2020-12-18] MEDS: Morphine 2 MG/ML SYRINGE IV SCH ×3 (06:00→22:33)
[2020-12-19] MEDS: Morphine 2 MG/ML SYRINGE IV SCH ×3 (06:13→22:27)
[2020-12-19] MEDS: Morphine ORAL CONCENTRATE 5 MG/0.25 ML ORAL.SYRIN PO PRN ×2 (13:25→22:26)
[2020-12-20] MEDS: Morphine 2 MG/ML SYRINGE IV SCH ×2 (06:15→14:00)
[2020-12-20] MEDS: Morphine 2 MG/ML SYRINGE IV PRN (10:29)
[2020-12-20] MEDS: Morphine ORAL CONCENTRATE 5 MG/0.25 ML ORAL.SYRIN PO PRN (14:56)
[2020-12-20] MEDS ORDERED: Morphine ORAL CONCENTRATE 5 MG/0.25 ML ORAL.SYRIN PO PRN ×2 (15:34→15:38)
[2020-12-20] MEDS: Morphine ORAL CONCENTRATE 5 MG/0.25 ML ORAL.SYRIN PO SCH (21:37)
[2020-12-21] MEDS: Morphine ORAL CONCENTRATE 5 MG/0.25 ML ORAL.SYRIN PO SCH ×3 (05:46→23:05)
[2020-12-21] MEDS: Nicotine PATCH 14 MG/24 HR PATCH TRANSDERM SCH (23:15)
[2020-12-22] MEDS: Morphine ORAL CONCENTRATE 5 MG/0.25 ML ORAL.SYRIN PO SCH ×3 (05:37→22:19)
[2020-12-22] MEDS: Nicotine PATCH 14 MG/24 HR PATCH TRANSDERM SCH (13:36)
[2020-12-23] MEDS: Morphine ORAL CONCENTRATE 5 MG/0.25 ML ORAL.SYRIN PO SCH ×2 (03:06→06:03)
[2020-12-23] MEDS: Nicotine PATCH 14 MG/24 HR PATCH TRANSDERM SCH (07:38)
[2020-12-23 07:40] VITALS: BP 177/92
== END 2020-12-23 08:05 | disposition hospice, home (50) | DRG 871 ==
LOC: ED 16:25 → MED 20:47 → SUATTDRO 20:47 → MED 12-01 00:14 → MEDTELE 12-02 01:23 → MED 12-21 16:54
PROVIDERS: ADMIT Internal Medicine; ATTEND Student in an Organized Health Care Education/Training Program